=== PATIENT | male | born 1990 | race African-American/Black ===

== ENCOUNTER 2024-12-07 13:18 | Inpatient (IN) | payer OTHER ==
--- NOTE | 2024-12-07 13:39 | ED ---
General Adult HPI - General Chief complaint: Chest Pain Stated complaint: Chest Pain Time Seen by Provider: 12/07/24 13:23 Source: patient, EMS Mode of arrival: EMS - History of Present Illness Initial comments: Dictation was produced using [employer] dictation software. please excuse any grammatical, word or spelling errors. Chief Complaint: 34-year-old male presents with chest and abdominal pain History of Present Illness: Patient 34-year-old alcoholic male states last night he thinks he drank too much states that he drank 1/5 of vodka along with several shots of tequila. Patient is a alcoholic states that he has been drinking daily for the last 2 months. Called EMS today for having some lower chest pain and epigastric abdominal pain. He did have some nausea. The ROS documented in this emergency department record has been reviewed and confirmed by me. Those systems with pertinent positive or negative responses have been documented in the HPI. All other systems are other negative and/or noncontributory. - Related Data Home Medications Medication Instructions Recorded Confirmed No Known Home Medications 12/07/24 12/07/24 Allergies Allergy/AdvReac Type Severity Reaction Status Date / Time No Known Allergies Allergy Verified 12/07/24 14:25 Review of Systems ROS Statement: Those systems with pertinent positive or pertinent negative responses have been documented in the HPI. ROS Other: All systems not noted in ROS Statement are negative. Past Medical History Past Medical History: No Reported History Past Surgical History: No Surgical Hx Reported Past Psychological History: Depression Smoking Status: Vaper Past Alcohol Use History: Daily Past Drug Use History: Marijuana General Exam - General Exam Comments Initial Comments: PHYSICAL EXAM: General Impression: Alert and oriented x3, mildly diaphoretic HEENT: Normocephalic atraumatic, extra-ocular movements intact, pupils equal and reactive to light bilaterally, mucous membranes moist. Cardiovascular: Heart regular rate and rhythm Chest: Able to complete full sentences, no retractions, no tachypnea Abdomen: abdomen soft, non-tender, non-distended, no organomegaly Musculoskeletal: Pulses present and equal in all extremities, no peripheral edema Motor: no focal deficits noted Neurological: CN II-XII grossly intact, no focal motor or sensory deficits noted Skin: Intact with no visualized rashes Psych: Normal affect and mood Course Vital Signs 12/07/24 12/07/24 12/07/24 13:20 15:33 16:03 Temperature 98.2 F Pulse Rate 104 H 104 H 107 H Respiratory 22 20 18 Rate Blood Pressure 168/108 171/107 144/91 O2 Sat by Pulse 98 99 98 Oximetry - Reevaluation(s) Reevaluation #1: 12/07/24 14:21 EKG was provided to me at 2:19 PM. EKG was suspicious for ischemia. Patient evaluated the bedside at 2:20 PM. States that his pain immediately went away. He is currently pain-free at the bedside. Cardiology paged for EKG review Reevaluation #2: 12/07/24 14:[address] Rodas on-call for cardiology states that he reviewed the EKG states it does not meet criteria for Medical Services Assistant activation at this time. Does recommend trending his troponin and performing serial EKGs. Reevaluation #3: 12/07/24 14:45 Repeat EKG was performed at 2:40 PM showing no dynamic changes. EKG Findings - EKG Comments: EKG Findings:: My EKG interpretation: Ventricular rate 90, sinus rhythm, CT 162, QRS 118, QTc 430. No CT prolongation, no QTC prolongation. Diffuse T wave inversions in inferior and precordial leads Medical Decision Making - Medical Decision Making Was pt. sent in by a medical professional or institution (, EDUARDO, FARM MACHINERY ENGINE MECHANIC, urgent care, hospital, or fpc...) When possible be specific @ -No Did you speak to anyone other than the patient for history (EMS, parent, family, police, friend...)? What history was obtained from this source @ -No Did you review nursing and triage notes (agree or disagree)? Why? @ -I reviewed and agree with nursing and triage notes Were old charts reviewed (outside hosp., previous admission, EMS record, old EKG, old radiological studies, urgent care reports/EKG's, fpc records)? Report findings @ -No old charts were reviewed Differential Diagnosis (chest pain, altered mental status, abdominal pain women, abdominal pain men, vaginal bleeding, musculoskeletal, weakness, fever, dyspnea, syncope, headache, dizziness, GI bleed, back pain, seizure, CVA, palpatations, mental health)? @ -Differential Chest Pain: Stable Angina, Unstable Angina, STEMI, NSTEMI Aortic Dissection, Pneumothorax, Musculoskeletal, Esophageal Spasm GERD, Cholecystitis, Pancreatitis, Zoster, this is not meant to be an all-inclusive list. EKG interpreted by me (3pts min.). @ -See above X-rays interpreted by me (1pt min.). @ -Chest x-ray nonacute CT interpreted by me (1pt min.). @ -None done U/S interpreted by me (1pt. min.). @ -None done What testing was considered but not performed or refused? (CT, X-rays, U/S, labs)? Why? @ -None What meds were considered but not given or refused? Why? @ -None Was smoking cessation discussed for >3mins.? @ -No Were there social determinants of health that impacted care today? How? (Homelessness, low income, unemployed, alcoholism, drug addiction, transpor tation, low edu. Level, literacy, decrease access to med. care, alf, rehab)? @ -No Was there de-escalation of care discussed even if they declined (Discuss DNR or withdrawal of care, Hospice)? DNR status @ -No What co-morbidities impacted this encounter? (DM, HTN, Smoking, COPD, CAD, Cancer, CVA, ARF, Chemo, Hep., AIDS, mental health diagnosis, sleep apnea, morbid obesity)? @ -Alcoholism Was patient admitted / discharged? Hospital course, mention meds given and route, prescriptions, significant lab abnormalities, going to OR and other pertinent info. @ -34-year-old alcoholic male presents to the ER for chest pain. Vital signs upon arrival tachycardia 104. Rest of vital signs within acceptable limits. Clinical presentation concerning for ACS. EKG suspicious for ischemic process. Case and EKG discussed with Dr. Rodas who reviewed EKG states that patient not a Medical Services Assistant activation candidate. Laboratory evaluation obtained. Labs unremarkable. Initial troponin is negative. Patient symptoms have resolved. [facility] protocol ordered. Patient will be admitted for treatment of alcohol withdrawal along with cardiac monitoring for symptoms concerning for ACS. Did you discuss the management of the patient with other professionals (professionals i.e. , PA, FARM MACHINERY ENGINE MECHANIC, lab, RT, psych nurse, social sciences instructor, information security specialist, teacher, contracting officer, transplant case manager)? Give summary @ -See above Was critical care preformed (if so, how long)? @ -No Undiagnosed new problem with uncertain prognosis? @ -No Drug Therapy requiring intensive monitoring for toxicity (Heparin, Nitro, Insulin, Cardizem)? @ -No Were any procedures done? @ -No Diagnosis/symptom? Acute, or Chronic, or Acute on Chronic? Uncomplicated (without systemic symptoms) or Complicated (systemic symptoms)? @ -ACS, alcohol withdrawal Side effects of treatment? @ -No Exacerbation, Progression, or Severe Exacerbation? @ -No Poses a threat to life or bodily function? How? (Chest pain, [place], [place], pneumonia, PE, COPD, DKA, ARF, appy, cholecystitis, CVA, Diverticulitis, Homicidal, Suicidal, threat to staff... and all critical care pts) @ -yes - Lab Data Result diagrams: 12/07/24 13:40 12/07/24 13:40 Lab Results 12/07/24 12/07/24 12/07/24 Range/Units 13:40 13:40 13:40 WBC 8.95 (4.50-10.00) 10*3/uL RBC 4.30 L (4.40-5.60) 10*6/uL Hgb 14.3 (13.0-17.0) g/dL Hct 39.3 L (39.6-50.0) % MCV 91.4 (80.0-97.0) fL MCH 33.3 H (27.0-32.0) pg MCHC 36.4 (32.0-37.0) g/dL Plt Count 271 (140-440) 10*3/uL MPV 9.7 (9.5-12.2) fL Immature Gran % (Auto) 0.2 % Neutrophils % 75.6 % Lymphocytes % 17.0 % Monocytes % 6.5 % Eosinophils % 0.1 % Basophils % 0.6 % Immature Gran # 0.02 (0.00-0.04) 10*3/uL Neutrophils # 6.77 (1.80-7.70) 10*3/uL Lymphocytes # 1.52 (0.90-5.00) 10*3/uL Monocytes # 0.58 (0.20-1.00) 10*3/uL Eosinophils # 0.01 L (0.04-0.35) 10*3/uL Basophils # 0.05 (0.00-0.10) 10*3/uL Sodium 141 (137-145) mmol/L Potassium 3.2 L (3.5-5.1) mmol/L Chloride 106 (98-107) mmol/L Carbon Dioxide 21 L (22-30) mmol/L Anion Gap 14 mmol/L BUN 16 (9-20) mg/dL Creatinine 0.84 (0.66-1.25) mg/dL Est GFR (CKD-EPI)AfAm >90 (>60 ml/min/1.73 sqM) Est GFR (CKD-EPI)NonAf >90 (>60 ml/min/1.73 sqM) Glucose 92 (74-99) mg/dL Calcium 9.7 (8.4-10.2) mg/dL Magnesium 1.7 (1.6-2.3) mg/dL Total Bilirubin 0.9 (0.2-1.3) mg/dL AST 41 (17-59) U/L ALT 40 (4-49) U/L Alkaline Phosphatase 88 (38-126) U/L Troponin I <0.012 (0.000-0.034) ng/mL Total Protein 7.7 (6.3-8.2) g/dL Albumin 5.0 (3.5-5.0) g/dL Lipase 34 (23-300) U/L Serum Alcohol <10 mg/dL Disposition Clinical Impression: Chest pain Disposition: ADMITTED IP TO THIS [facility] Condition: Fair Referrals: None,Stated [Primary Care Provider] - 1-2 days Decision Time: 16:20
[2024-12-07 13:48] LABS: Basophils # (A) 0.05 10*3/uL (0.00-0.10); Basophils % (A) 0.6 %; Eosinophils # (A) 0.01 10*3/uL (0.04-0.35); Eosinophils % (A) 0.1 %; HCT 39.3 % (39.6-50.0); HGB 14.3 g/dL (13.0-17.0); Lymphocytes # (A) 1.52 10*3/uL (0.90-5.00); Lymphocytes % (A) 17.0 %; MCH 33.3 pg (27.0-32.0); MCHC 36.4 g/dL (32.0-37.0); MCV 91.4 fL (80.0-97.0); Monocytes # (A) 0.58 10*3/uL (0.20-1.00); Monocytes % (A) 6.5 %; Neutrophils # (A) 6.77 10*3/uL (1.80-7.70); Neutrophils % (A) 75.6 %; Platelet Count 271 10*3/uL (140-440); RBC 4.30 10*6/uL (4.40-5.60); RDW 12.6 % (11.5-14.5); WBC 8.95 10*3/uL (4.50-10.00)
[2024-12-07] MEDS: SODIUM CHLORIDE 0.9% 1,000 ML IV STA (13:48)
[2024-12-07] MEDS: METOCLOPRAMIDE 5 MG/ML 2 ML VIAL IVP STA (13:48)
[2024-12-07] MEDS ORDERED: LORazepam 1 MG/0.5 ML VIAL IV PRN ×2 (13:52)
[2024-12-07 13:59] LABS: ALT 40 U/L (4-49); AST 41 U/L (17-59); African American GFR (CKD) >90 (>60 ml/min/1.73 sqM); Albumin 5.0 g/dL (3.5-5.0); Alkaline Phosphatase 88 U/L (38-126); Anion Gap 14 mmol/L; Blood Urea Nitrogen 16 mg/dL (9-20); Calcium 9.7 mg/dL (8.4-10.2); Carbon Dioxide 21 mmol/L (22-30); Chloride 106 mmol/L (98-107); Glucose 92 mg/dL (74-99); Lipase 34 U/L (23-300); Magnesium 1.7 mg/dL (1.6-2.3); Non-African American GFR(CKD) >90 (>60 ml/min/1.73 sqM); Potassium 3.2 mmol/L (3.5-5.1); Sodium 141 mmol/L (137-145); Total Protein 7.7 g/dL (6.3-8.2)
[2024-12-07] MEDS: ASPIRIN 81 MG PO STA (14:20)
[2024-12-07] MEDS: LORazepam 1 MG/0.5 ML VIAL IV PRN (14:45)
[2024-12-07] MEDS ORDERED: NITROGLYCERIN SL TABS 0.4 MG TAB SUBLINGUAL PRN (16:16)
--- NOTE | 2024-12-07 16:21 | XR ---
EXAMINATION TYPE: XR chest 1V portable DATE OF EXAM: 12/07/2024 3:21 PM COMPARISON: None. CLINICAL INDICATION: Male, 34 years old with history of chest pain, TECHNIQUE: XR chest 1V portable view(s) obtained. FINDINGS: The heart size is normal. The pulmonary vasculature is normal. The lungs are clear. IMPRESSION: 1. No acute pulmonary process. [facility], Workstation: [facility], 12/07/2024 4:18 PM
--- NOTE | 2024-12-07 18:02 | P.HPIM ---
History of Present Illness H&P Date: 12/07/24 34 year old M with PMH EtOH abuse, nicotine dependence presents to the ED for chest pain. Started this morning while he was cooking. Pain is more so located in the epigastric area. Not associated with movement or deep inspiration. Denies recent URI. Pain was associated with numbness/tingling of all fingers and toes along with one episode on N/V. Patient reports hyperventilating while being transported by EMS. Symptoms have currently resolved. Mother in the 40s from a CVA. Reports daily drinking for the past 2 months. Vapes nicotine. In the ED he underwent extensive evaluation. BP 168/108, HR 104, T 98.2F, RR 22, 98% on RA. CBC, CMP significant for RBC 4.3, Hct 39.3, K 3.2, bicarb 21. Lipase 34. EtOH < 10. Trop < 0.012, 0.014 with EKG showing sinus rhythm with no ST T wave changes. Patient is admitted for Cardiology evaluation and ACS rule out. General: no distress, appears at stated age Derm: warm, dry Head: atraumatic, normocephalic, symmetric Eyes: Pupils non reactive. Mouth: no lip lesion, mucus membranes moist Cardiovascular: S1 S2 tachy. No murmur. Lungs: Decreased BS bilaterally, no accessory muscle use Ext: no gross muscle atrophy, no edema, no contractures Neuro: No focal neurologic deficits Psych: AO x 3 Based on my assessment of this patient, this patient meets a high complexity level of care. Chest pain: Anxiety or GI cause with vagal response out ACS. Trend Trop/EKG. Telemetry monitoring. Order Echo. Cardiology consult. EtOH abuse: CIWA protocol with Ativan as needed per protocol. HypoK: KCl 20 meq PO x 1. Repeat in the AM. Nicotine dependence: Nicotine patch offered. CODE STATUS: FULL CODE DVT Prophylaxis: Early ambulation GI Prophylaxis: Designated medical POA if patient is not able to make medical decisions for themselves: I have reviewed the following webmethods consultant notes: ED note. I have reviewed the results of the following tests: As above. I have ordered the following tests: As above. I have discussed the care of this patient with the following independent historian: I have independently interpreted the following test below: EKG. I have discussed the management of this patient with the following physician: Past Medical History Past Medical History: No Reported History Past Surgical History: No Surgical Hx Reported Past Psychological History: Depression Smoking Status: Vaper Past Alcohol Use History: Daily Past Drug Use History: Marijuana Medications and Allergies Home Medications Medication Instructions Recorded Confirmed Type No Known Home Medications 12/07/24 12/07/24 History Allergies Allergy/AdvReac Type Severity Reaction Status Date / Time No Known Allergies Allergy Verified 12/07/24 14:25 Physical Exam Vitals: Vital Signs Temp Pulse Resp BP Pulse Ox 12/07/24 16:03 107 H 18 144/91 98 12/07/24 15:33 104 H 20 171/107 99 12/07/24 13:20 98.2 F 104 H 22 168/108 98 Intake and Output 12/07/24 12/07/24 12/07/24 06:59 14:59 22:59 Other: Weight 95.254 kg Results CBC & Chem 7: 12/07/24 13:40 12/07/24 13:40 Labs: Abnormal Lab Results - Last 24 Hours (Table) 12/07/24 12/07/24 Range/Units 13:40 13:40 RBC 4.30 L (4.40-5.60) 10*6/uL Hct 39.3 L (39.6-50.0) % MCH 33.3 H (27.0-32.0) pg Eosinophils # 0.01 L (0.04-0.35) 10*3/uL Potassium 3.2 L (3.5-5.1) mmol/L Carbon Dioxide 21 L (22-30) mmol/L
[2024-12-07] MEDS: POTASSIUM CHLORIDE ER 20 MEQ TAB.ER PO STA (18:10)
[2024-12-08] MEDS ORDERED: HEPARIN SODIUM,PORCINE 10,000 UNIT in SODIUM CHLORIDE 0.9% 1,000 ML IRRIGATION PRN (07:00)
[2024-12-08] MEDS ORDERED: HEPARIN SODIUM,PORCINE (1 ML) 2,500 UNIT in SODIUM CHLORIDE 0.9% 250 ML IRRIGATION PRN (07:00)
[2024-12-08 08:02] LABS: African American GFR (CKD) >90 (>60 ml/min/1.73 sqM); Anion Gap 10 mmol/L; Blood Urea Nitrogen 12 mg/dL (9-20); Calcium 9.4 mg/dL (8.4-10.2); Carbon Dioxide 22 mmol/L (22-30); Chloride 109 mmol/L (98-107); Glucose 96 mg/dL (74-99); Non-African American GFR(CKD) >90 (>60 ml/min/1.73 sqM); Potassium 3.7 mmol/L (3.5-5.1); Sodium 141 mmol/L (137-145)
[2024-12-08] MEDS ORDERED: ALPRAZolam 0.25 MG TAB PO PRN (08:27)
[2024-12-08] MEDS ORDERED: NITROGLYCERIN SL TABS 0.4 MG TAB SUBLINGUAL PRN (08:27)
[2024-12-08] MEDS ORDERED: ASPIRIN 325 MG TAB PO SCH (09:00)
[2024-12-08 09:16] LABS: NT-Pro-B-Type Natriuretic Pept 736 pg/mL
[2024-12-08] MEDS: ASPIRIN 81 MG PO SCH (09:20)
[2024-12-08] MEDS: SODIUM CHLORIDE 0.9% 1,000 ML IV SCH (09:20)
[2024-12-08] MEDS: ATORVASTATIN 80 MG TAB PO STA (09:25)
[2024-12-08] MEDS: ASPIRIN 325 MG TAB PO STA (09:25)
[2024-12-08] MEDS: SACUBITRIL/VALSARTAN 24 MG-26 MG TABLET PO SCH (09:25)
[2024-12-08 09:54] VITALS: RESP 16
[2024-12-08 10:46] LABS: Cholesterol 151.00 mg/dL (0.00-200.00); HDL Cholesterol 44.50 mg/dL (40.00-60.00); LDL Cholesterol,Calculated 72.7 mg/dL (0.0-131.0); Triglycerides 169.00 mg/dL (0.00-149.00); VLDL Calculation 33.80 mg/dL (5.00-40.00)
[2024-12-08] MEDS: ALPRAZolam 0.5 MG TAB PO PRN (10:48)
--- NOTE | 2024-12-08 11:09 | P.PN ---
Subjective Progress Note Date: 12/08/24 34 year old M with PMH EtOH abuse, nicotine dependence presents to the ED for chest pain. Started this morning while he was cooking. Pain is more so located in the epigastric area. Not associated with movement or deep inspiration. Denies recent URI. Pain was associated with numbness/tingling of all fingers and toes along with one episode on N/V. Patient reports hyperventilating while being transported by EMS. Symptoms have currently resolved. Mother in the 40s from a CVA. Reports daily drinking for the past 2 months. Vapes nicotine. In the ED he underwent extensive evaluation. BP 168/108, HR 104, T 98.2F, RR 22, 98% on RA. CBC, CMP significant for RBC 4.3, Hct 39.3, K 3.2, bicarb 21. Lipase 34. EtOH < 10. Trop < 0.012, 0.014 with EKG showing sinus rhythm with no ST T wave changes. Patient is admitted for Cardiology evaluation and ACS rule out. 12/08 Patient was seen and examined. No chest pain. Wanting to go home. Discussed with Dr. Nuno, EF 30-35%, started on Coreg, Entresto and Lipitor. Dr. Nuno recommending cardiac cath however patient is not agreeable. BP as high as 173/111 last night requiring Clonidine. BMP shows Cl 109. Trop 0.016. Lipid panel TG 169, T. Chol 151, LDL 72.7. TSH 2.59. General: no distress, appears at stated age Derm: warm, dry Head: atraumatic, normocephalic, symmetric Eyes: Pupils non reactive. Mouth: no lip lesion, mucus membranes moist Cardiovascular: S1 S2 reg. No murmur. Lungs: Decreased BS bilaterally, no accessory muscle use Ext: no gross muscle atrophy, no edema, no contractures Neuro: No focal neurologic deficits Psych: AO x 3 Based on my assessment of this patient, this patient meets a high complexity level of care. Chest pain: Anxiety or GI cause with vagal response out ACS. Troponin flat. Cardiology recommending cardiac cath. Telemetry monitoring. Follow official Echo. Cardiology on board. HFrEF: New diagnosis. Started on Coreg 3.125 mg PO BID, Entresto 24-26 mg PO BID. 1.5 L fluid restriction and low salt diet. Cardiology recommending cardiac cath. Cardiology on board. Hypertensive urgency: BP as high as 173/111 last night. Coreg and Entresto as above. Monitor BP and adjust medications if necessary. EtOH abuse: CIWA protocol with Ativan as needed per protocol. Nicotine dependence: Nicotine patch offered. Resolved: HypoK Patient will have to sign out AMA if wanting to leave. CODE STATUS: FULL CODE DVT Prophylaxis: Early ambulation GI Prophylaxis: Designated medical POA if patient is not able to make medical decisions for themselves: I have reviewed the following oracle hyperion consultant notes: I have reviewed the results of the following tests: BMP, Trop, Lipid panel. I have ordered the following tests: Echo pending. I have discussed the care of this patient with the following independent historian: RN. I have independently interpreted the following test below: I have discussed the management of this patient with the following physician: Dr. Nuno. Objective - Vital Signs Vital signs: Vital Signs Temp 98.6 F 12/08/24 07:32 Pulse 78 12/08/24 07:32 Resp 16 12/08/24 07:32 BP 145/92 12/08/24 07:32 Pulse Ox 100 12/08/24 07:32 FiO2 Intake & Output 12/07/24 12/08/24 12/08/24 18:59 06:59 18:59 Weight 95.254 kg 95.254 kg Other: # Voids 2 - Labs CBC & Chem 7: 12/07/24 13:40 12/08/24 06:20 Labs: Abnormal Lab Results - Last 24 Hours (Table) 12/07/24 12/07/24 12/08/24 Range/Units 13:40 13:40 06:20 RBC 4.30 L (4.40-5.60) 10*6/uL Hct 39.3 L (39.6-50.0) % MCH 33.3 H (27.0-32.0) pg Eosinophils # 0.01 L (0.04-0.35) 10*3/uL Potassium 3.2 L (3.5-5.1) mmol/L Chloride (98-107) mmol/L Carbon Dioxide 21 L (22-30) mmol/L Triglycerides 169.00 H (0.00-149.00) mg/dL 12/08/24 Range/Units 06:20 RBC (4.40-5.60) 10*6/uL Hct (39.6-50.0) % MCH (27.0-32.0) pg Eosinophils # (0.04-0.35) 10*3/uL Potassium (3.5-5.1) mmol/L Chloride 109 H (98-107) mmol/L Carbon Dioxide (22-30) mmol/L Triglycerides (0.00-149.00) mg/dL
[2024-12-08] MEDS: ACETAMINOPHEN TAB 325 MG TAB PO PRN (12:55)
--- NOTE | 2024-12-08 14:10 | P.CRDCN ---
History of Present Illness Consult date: 12/08/24 Consult reason: chest pain History of present illness: This is a 34-year-old male with no previous cardiac history and does not follow with a room service bellhop. He does have history of hypertension. We have been asked to evaluate the patient for chest pain. Patient states that today he is feeling fine. He states that yesterday he thinks he was having symptoms because he had too much alcohol the day before and he was working in the kitchen it was very hot and he was dehydrated. He drank some Gatorade and water and was better. He did have a little bit of chest pain in the right side of his chest and he thought it was more related to anxiety. He has been n.p.o. and frustratedly has not been able to eat. He apparently was not able to eat all day yesterday. Preliminary results of the echocardiogram reviewed with the patient by Dr. Nuno. Dr. Nuno also advised the patient to undergo cardiac catheterization which patient would prefer to wait and do at a later time. Patient agrees that he will follow-up in the office within the week to be scheduled. Regarding alcohol. Patient is currently drinking alcohol daily. He also uses marijuana and vapes. Patient presented with blood pressure of 173/111. Blood pressure is now 145/92, heart rate in the 70s to 90s, pulse ox 100% on room air. -EKG: Sinus rhythm with LVH -Chest x-ray: No acute process. -Laboratory studies: WBC 8.9, hemoglobin 14, creatinine 0.83. Troponin negative x 3. proBNP 736. Triglycerides 169, cholesterol 151, LDH 72, TSH 2.59, serum alcohol less than 10. -Home cardiac medications: None Review Of Systems: At the time of my exam: CONSTITUTIONAL: Denies fever or chills. HEENT: Denies blurred vision, vision changes, or eye pain. Denies hemoptysis CARDIOVASCULAR: Denies chest pain. Denies orthopnea. Denies PND. Denies palpitations RESPIRATORY: Denies shortness of breath. GASTROINTESTINAL: Denies abdominal pain. Denies nausea or vomiting. HEMATOLOGIC: Denies bleeding disorders. GENITOURINARY: Denies any blood in urine. SKIN: Denies puritis. Denies rash. Physical examination: Gen: This is a 34-year-old black male in no acute distress. VS: reviewed HEENT: Head is atraumatic, normocephalic. Pupils equal, round. Sclerae is anicteric. NECK: Supple. No JVD. LUNGS: Clear to auscultation. No wheezes or rhonchi. No intercostal retractions. HEART: Regular rate and rhythm. No murmur. ABDOMEN: Soft No tenderness. EXTREMITIES: No pedal edema. No calf tenderness. NEUROLOGICAL: Patient is awake, alert and oriented x3. Assessment: Cardiomyopathy unknown if ischemic or nonischemic Hypertension Alcohol abuse LVH Atypical chest pain, acute coronary syndrome ruled out pulm Plan: Patient started on aspirin 81 mg daily, atorvastatin 40 mg at bedtime, Coreg 3.125 mg twice daily, Entresto 24-26 mg 1 twice daily Patient has declined cardiac catheterization at this time and is cleared for discharge Patient to follow-up with Dr. Nuno within 1 week to be scheduled for cardiac catheterization outpatient. Thank you kindly for this consultation. Nurse practitioner note has been reviewed, I agree with documented findings and plan of care. Patient was seen and examined. Past Medical History Past Medical History: No Reported History History of Any Multi-Drug Resistant Organisms: None Reported Past Surgical History: No Surgical Hx Reported Past Psychological History: Depression Smoking Status: Vaper Past Alcohol Use History: Daily Past Drug Use History: Marijuana Medications and Allergies Home Medications Medication Instructions Recorded Confirmed Type ALPRAZolam [Xanax] 0.25 mg PO Q6HR PRN #12 tab 12/08/24 Rx Aspirin 81 mg PO DAILY #30 tab 12/08/24 Rx Atorvastatin [Lipitor] 40 mg PO HS #30 tab 12/08/24 Rx Nitroglycerin Sl Tabs [Nitrostat] 0.4 mg SUBLINGUAL Q5M PRN #30 tab 12/08/24 Rx Sacubitril/Valsartan [Entresto 24 1 each PO BID #60 tab 12/08/24 Rx mg-26 mg Tablet] carvediloL [Coreg] 3.125 mg PO BID-W/MEALS #60 tab 12/08/24 Rx Allergies Allergy/AdvReac Type Severity Reaction Status Date / Time No Known Allergies Allergy Verified 12/07/24 14:25 Physical Exam Vitals: Vital Signs Temp Pulse Pulse Resp BP BP Pulse Ox 12/08/24 05:46 149/94 12/08/24 02:00 98.1 F 98 17 143/101 98 12/07/24 21:29 98.2 F 80 16 173/111 97 12/07/24 21:12 98.7 F 12/07/24 20:50 80 18 158/98 97 12/07/24 16:03 107 H 18 144/91 98 12/07/24 15:33 104 H 20 171/107 99 12/07/24 13:20 98.2 F 104 H 22 168/108 98 Intake and Output 12/07/24 12/08/24 12/08/24 22:59 06:59 14:59 Other: # Voids 1 2 Weight 95.254 kg Results 12/07/24 13:40 12/08/24 06:20 Cardiac Enzymes 12/07/24 12/07/24 12/07/24 Range/Units 13:40 13:40 16:54 AST 41 (17-59) U/L Troponin I <0.012 0.014 (0.000-0.034) ng/mL 12/07/24 Range/Units 20:19 AST (17-59) U/L Troponin I 0.016 (0.000-0.034) ng/mL CBC 12/07/24 Range/Units 13:40 WBC 8.95 (4.50-10.00) 10*3/uL RBC 4.30 L (4.40-5.60) 10*6/uL Hgb 14.3 (13.0-17.0) g/dL Hct 39.3 L (39.6-50.0) % Plt Count 271 (140-440) 10*3/uL Comprehensive Metabolic Panel 12/07/24 12/08/24 Range/Units 13:40 06:20 Sodium 141 141 (137-145) mmol/L Potassium 3.2 L 3.7 (3.5-5.1) mmol/L Chloride 106 109 H (98-107) mmol/L Carbon Dioxide 21 L 22 (22-30) mmol/L BUN 16 12 (9-20) mg/dL Creatinine 0.84 0.83 (0.66-1.25) mg/dL Glucose 92 96 (74-99) mg/dL Calcium 9.7 9.4 (8.4-10.2) mg/dL AST 41 (17-59) U/L ALT 40 (4-49) U/L Alkaline Phosphatase 88 (38-126) U/L Total Protein 7.7 (6.3-8.2) g/dL Albumin 5.0 (3.5-5.0) g/dL Current Medications Generic Name Dose Route Start Last Admin Trade Name Freq PRN Reason Stop Dose Admin Aspirin 81 mg 12/08/24 09:00 Aspirin 81 Mg PO DAILY LOREE Lorazepam 1 mg 12/07/24 13:52 Lorazepam 1 Mg/0.5 Ml Vial IV Q1HR PRN CIWA 10 to 15 Lorazepam 1 mg 12/07/24 13:52 12/07/24 14:45 Lorazepam 1 Mg/0.5 Ml Vial IV 1 mg Q2HR PRN Administration CIWA 8 or 9 Lorazepam 2 mg 12/07/24 13:52 Lorazepam 1 Mg/0.5 Ml Vial IV 12/09/24 13:52 Q10M PRN CIWA 16 or higher Nitroglycerin 0.4 mg 12/07/24 16:16 Nitroglycerin Sl Tabs 0.4 Mg Tab SUBLINGUAL Q5M PRN Chest Pain Intake and Output 12/07/24 12/08/24 12/08/24 22:59 06:59 14:59 Other: # Voids 1 2 Weight 95.254 kg 12/07/24 13:40 12/08/24 06:20
[2024-12-08] MEDS: ATORVASTATIN 40 MG TAB PO SCH (20:54)
--- NOTE | 2024-12-08 21:47 | CA ---
Transthoracic Echo Report Name: Jessica Urbina Age: 34 Gender: M : 1990 Exam Date: 12/08/2024 07:45 Exam Location: [facility] Ht (in): 70 Wt (lb): 210 Ordering Physician: Yenni Whatley MD Attending/Referring Phys: Student Truck Driver Seema Dixon RDCS Procedure CPT: Indications: CP, Unstable angina Cardiac Hx: Technical Quality: Fair Contrast 1: Total Dose (mL): Contrast 2: Total Dose (mL): MEASUREMENTS (Male / Female) Normal Values 2D ECHO LV Diastolic Diameter PLAX 6.7 cm 4.2 - 5.9 / 3.9 - 5.3 cm LV Systolic Diameter PLAX 5.8 cm IVS Diastolic Thickness 0.8 cm 0.6 - 1.0 / 0.6 - 0.9 cm LVPW Diastolic Thickness 1.2 cm 0.6 - 1.0 / 0.6 - 0.9 cm LV Relative Wall Thickness 0.3 RV Internal Dim ED PLAX 3.4 cm LVOT Diameter 2.2 cm LA Systolic Diameter LX 3.9 cm 3.0 - 4.0 / 2.7 - 3.8 cm LV Diastolic Volume MOD BP 214.5 cm??? 67 - 155 / 56 - 104 cm??? LV Systolic Volume MOD BP 131.2 cm??? - / 19 - 49 cm??? LV Ejection Fraction MOD BP 38.8 % >= 55 % LV Cardiac Index MOD BP 2962.4 cm???/min???m??? LV Diastolic Volume MOD 4C 222.5 cm??? LV Systolic Volume MOD 4C 130.1 cm??? LV Ejection Fraction MOD 4C 41.5 % LV Cardiac Index MOD 4C 3284.5 cm???/min???m??? LV Diastolic Length 4C 9.6 cm LV Systolic Length 4C 8.7 cm LV Diastolic Volume MOD 2C 190.1 cm??? LV Systolic Volume MOD 2C 109.5 cm??? LV Ejection Fraction MOD 2C 42.4 % LV Cardiac Index MOD 2C 2867.6 cm???/min???m??? LV Diastolic Length 2C 8.8 cm LV Systolic Length 2C 7.2 cm LA Volume 47.5 cm??? 18 - 58 / 22 - 52 cm??? LA Volume Index 21.7 cm???/m??? 16 - 28 cm???/m??? M-MODE Aortic Root Diameter MM 3.9 cm AV Cusp Separation MM 2.4 cm DOPPLER AV Peak Velocity 135.3 cm/s AV Peak Gradient 7.3 mmHg LVOT Peak Velocity 105.6 cm/s LVOT Peak Gradient 4.5 mmHg AV Area Cont Eq pk 3.0 cm??? MV Peak Velocity 82.6 cm/s MV Peak Gradient 2.7 mmHg MV Mean Velocity 56.3 cm/s MV Mean Gradient 1.5 mmHg MV Velocity Time Integral 26.5 cm MV Area PHT 6.6 cm??? Mitral E Point Velocity 72.4 cm/s Mitral A Point Velocity 46.5 cm/s Mitral E to A Ratio 1.6 MV Deceleration Time 114.3 ms TR Peak Velocity 184.5 cm/s TR Peak Gradient 13.6 mmHg Right Ventricular Systolic Press 18.6 mmHg PV Peak Velocity 88.7 cm/s PV Peak Gradient 3.1 mmHg FINDINGS Left Ventricle Left ventricular ejection fraction is estimated at 30-35 %. Moderately increased left ventricular diastolic diameter. Severely increased left ventricular diastolic volume. Severely increased left ventricular systolic volume. Moderately decreased left ventricular ejection fraction. Moderately reduced global left ventricular systolic function. Heavily trabeculated apex. Right Ventricle Normal right ventricular size and function. Right Atrium Normal right atrial size. No right atrial thrombus or mass seen. Left Atrium Normal left atrial size. No left atrial thrombus or mass present. Mitral Valve Mild thickening/calcification of the anterior and posterior mitral valve leaflet. No mitral stenosis. No mitral regurgitation. Aortic Valve Thickened aortic valve without stenosis. No aortic regurgitation. Tricuspid Valve Structurally normal tricuspid valve. No tricuspid stenosis. Trace tricuspid regurgitation. Pulmonic Valve Structurally normal pulmonic valve. Trace pulmonic regurgitation. Pericardium No pericardial effusion. No pleural effusion. Aorta Normal size aortic root and dilated proximal ascending aorta at 3.9 CONCLUSIONS LVEF 30 to 35% Severely reduced global LV systolic function. Moderately dilated LV cavity Trabeculated apex No significant valvular dysfunction Normal RV size systolic function Previewed by: Dr Donnie Nuno (Electronically Signed) Final Date: 08 December 2024 21:46
[2024-12-09 09:13] VITALS: BP 136/90; PULSE 78; TEMP 98.1
--- NOTE | 2024-12-09 10:29 | P.PN ---
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 He does have history of hypertension. We have been asked to evaluate the patient for chest pain. Patient states that today he is feeling fine. He states that yesterday he thinks he was having symptoms because he had too much alcohol the day before and he was working in the kitchen it was very hot and he was dehydrated. He drank some Gatorade and water and was better. He did have a little bit of chest pain in the right side of his chest and he thought it was more related to anxiety. He has been n.p.o. and frustratedly has not been able to eat. He apparently was not able to eat all day yesterday. Preliminary results of the echocardiogram reviewed with the patient by Dr. Nuno. Dr. Nuno also advised the patient to undergo cardiac catheterization which patient would prefer to wait and do at a later time. Patient agrees that he will follow-up in the office within the week to be scheduled. Regarding alcohol. Patient is currently drinking alcohol daily. He also uses marijuana a nd vapes. Patient presented with blood pressure of 173/111. Blood pressure is now 145/92, heart rate in the 70s to 90s, pulse ox 100% on room air. -EKG: Sinus rhythm with LVH -Chest x-ray: No acute process. -Laboratory studies: WBC 8.9, hemoglobin 14, creatinine 0.83. Troponin negative x 3. proBNP 736. Triglycerides 169, cholesterol 151, LDH 72, TSH 2.59, serum alcohol less than 10. -Home cardiac medications: None 12/09/2024 Patient seen and examined. He states he has not had any more chest pain. He denies wishing to move forward with cardiac catheterization. He denies alcohol withdrawal symptoms. Blood pressure 136/90, heart rate 78, pulse ox 100% on room air. A1c 5.5. Echocardiogram reveals EF 30 to 35%. Physical examination: Gen: This is a 34-year-old black male in no acute distress. VS: reviewed HEENT: Head is atraumatic, normocephalic. Pupils equal, round. Sclerae is an icteric. NECK: Supple. No JVD. LUNGS: Clear to auscultation. No wheezes or rhonchi. No intercostal retractions. HEART: Regular rate and rhythm. No murmur. ABDOMEN: Soft No tenderness. EXTREMITIES: No pedal edema. No calf tenderness. NEUROLOGICAL: Patient is awake, alert and oriented x3. Assessment: Cardiomyopathy unknown if ischemic or nonischemic with EF of 30 to 35% Hypertension Alcohol abuse LVH Atypical chest pain, acute coronary syndrome ruled out pulm Plan: Continue new medications: Aspirin 81 mg daily, atorvastatin 40 mg at bedtime, Coreg 3.125 mg twice daily, Entresto 24-26 mg 1 twice daily Patient has declined cardiac catheterization at this time and is cleared for discharge Patient to follow-up with Dr. Nuno within 1 week to be scheduled for cardiac catheterization outpatient. Nurse practitioner note has been reviewed, I agree with documented findings and plan of care. Patient was seen and examined. Objective - Vital Signs Vital signs: Vital Signs Temp 98.1 F 12/09/24 07:00 Pulse 78 12/09/24 07:00 Resp 16 12/09/24 07:00 BP 136/90 12/09/24 07:00 Pulse Ox 100 12/09/24 07:00 FiO2 Intake & Output 12/08/24 12/09/24 12/09/24 18:59 06:59 18:59 Intake Total 236 Balance 236 Intake: Oral 236 Other: # Voids 2 2 - Labs CBC & Chem 7: 12/07/24 13:40 12/08/24 06:20 Labs: Abnormal Lab Results - Last 24 Hours (Table) 12/08/24 Range/Units 06:20 Triglycerides 169.00 H (0.00-149.00) mg/dL
--- NOTE | 2024-12-09 13:40 | P.DS ---
Providers Date of admission: 12/07/24 16:19 Expected date of discharge: 12/09/24 Attending physician: Yenni Whatley MD Consults: 12/07/24 15:14 Consult Physician Routine Consulting Provider: Fred Rodas Consult Reason/Comments: chest pain Do you want consulting provider notified?: Yes Primary care physician: Stated None Hospital Course: 34 year old M with PMH EtOH abuse, nicotine dependence presents to the ED for chest pain. Started this morning while he was cooking. Pain is more so located in the epigastric area. Not associated with movement or deep inspiration. Denies recent URI. Pain was associated with numbness/tingling of all fingers and toes along with one episode on N/V. Patient reports hyperventilating while being transported by EMS. Symptoms have currently resolved. Mother in the 40s from a CVA. Reports daily drinking for the past 2 months. Vapes nicotine. In the ED he underwent extensive evaluation. BP 168/108, HR 104, T 98.2F, RR 22, 98% on RA. CBC, CMP significant for RBC 4.3, Hct 39.3, K 3.2, bicarb 21. Lipase 34. EtOH < 10. Trop < 0.012, 0.014 with EKG showing sinus rhythm with no ST T wave changes. Patient is admitted for Cardiology evaluation and ACS rule out. 12/08 Patient was seen and examined. No chest pain. Wanting to go home. Discussed with Dr. Nuno, EF 30-35%, started on Coreg, Entresto and Lipitor. Dr. Nuno recommending cardiac cath however patient is not agreeable. BP as high as 173/111 last night requiring Clonidine. BMP shows Cl 109. Trop 0.016. Lipid panel TG 169, T. Chol 151, LDL 72.7. TSH 2.59. 12/09 Patient was seen and examined. No complaints. BP improved to 136/90. Cleared by cardiology for discharge. No new labs done today. Discharge Plan: Prescription sent for ASA, Lipitor, Coreg, Losartan (Entresto is 900$/month), Nitro SL, and Xanax. Advised cardiac diet with 1.5L fluid restriction. Advised to refrain from drinking alcohol. Follow up with PCP within 1-2 days and Cardiology within 1 week of discharge. General: no distress, appears at stated age Derm: warm, dry Head: atraumatic, normocephalic, symmetric Eyes: Anicteric sclera Mouth: no lip lesion, mucus membranes moist Cardiovascular: S1 S2 reg. No murmur. Lungs: Decreased BS bilaterally, no accessory muscle use Ext: no gross muscle atrophy, no edema, no contractures Neuro: No focal neurologic deficits Psych: AO x 3 Discharge Diagnosis: Chest pain HFrEF Hypertensive urgency EtOH abuse Nicotine dependence Resolved: HypoK This complex discharge took 35 minutes to complete. Patient Condition at Discharge: Stable Plan - Discharge Summary New Discharge Prescriptions: New carvediloL [Coreg] 3.125 mg PO BID-W/MEALS #60 tab ALPRAZolam [Xanax] 0.25 mg PO Q6HR PRN #12 tab PRN Reason: Anxiety Losartan [Cozaar] 50 mg PO DAILY #30 tab Aspirin 81 mg PO DAILY #30 tab Atorvastatin [Lipitor] 40 mg PO HS #30 tab Nitroglycerin Sl Tabs [Nitrostat] 0.4 mg SUBLINGUAL Q5M PRN #30 tab PRN Reason: Chest Pain Discharge Medication List ALPRAZolam [Xanax] 0.25 mg PO Q6HR PRN #12 tab 12/08/24 [Rx] Aspirin 81 mg PO DAILY #30 tab 12/08/24 [Rx] Atorvastatin [Lipitor] 40 mg PO HS #30 tab 12/08/24 [Rx] Nitroglycerin Sl Tabs [Nitrostat] 0.4 mg SUBLINGUAL Q5M PRN #30 tab 12/08/24 [Rx] carvediloL [Coreg] 3.125 mg PO BID-W/MEALS #60 tab 12/08/24 [Rx] Losartan [Cozaar] 50 mg PO DAILY #30 tab 12/09/24 [Rx] Follow up Appointment(s)/Referral(s): Donnie Nuno MD [Medical Doctor] - 1 Week (Office will call with follow up appointment date and time) None,Stated [Primary Care Provider] - 1-2 days Activity/Diet/Wound Care/Special Instructions: Diet: Cardiac 1.5 L fluid restriction, low salt Discharge/Stand Alone Forms: AA Meetings [place], Who Do I Call?, Community Resources, Outpatient Counseling, Inp Substance Abuse Facilities, Area PCPs Discharge Disposition: HOME SELF-CARE
== END 2024-12-09 12:03 | disposition home or self-care (01) | DRG 313 ==
LOC: EC 13:18 → 6NMEDSUR 16:18 → OBSVTOIN 16:19 → 6NMEDSUR 21:07
PROVIDERS: ADMIT Family Medicine; ATTEND Family Medicine
DX: R07.89 Other chest pain (principal); I50.20 Unspecified systolic (congestive) heart failure; I11.0 Hypertensive heart disease with heart failure; I16.0 Hypertensive urgency; F10.10 Alcohol abuse, uncomplicated; I42.9 Cardiomyopathy, unspecified; E87.6 Hypokalemia; F17.290 Nicotine dependence, other tobacco product, uncomplicated; F41.9 Anxiety disorder, unspecified; Y90.0 Blood alcohol level of less than 20 mg/100 ml; Z82.3 Family history of stroke
CPT/HCPCS: 36415; 71045; 80048; 80053; 80061; 80320; 83036; 83690; 83735; 83880; 84443; 84484; 85025; 93005; 93306; 96361; 96374; 96375; 99285